=== PATIENT | male | born 1955 | race Caucasian/White ===

== ENCOUNTER 2017-06-02 11:57 | Emergency (ER) | payer OTHER ==
[2017-06-02 12:01] VITALS: BP 144/80
[2017-06-02] MEDS ORDERED: Tetracaine HCl/PF 0.5% 4 ML Bottle EYERT ONE (12:19)
[2017-06-02] MEDS ORDERED: Polyvinyl Alcohol 1.4% Ophth Soln 15 ML Bottle EYERT ONE (12:20)
[2017-06-02] MEDS ORDERED: Erythromycin Base 0.5% Ophth Oint 3.5 GM Tube ONE (12:41)
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
== END 2017-06-02 13:12 | disposition home or self-care (01) ==
LOC: LL.ED 11:57
DX: H10.31 Unspecified acute conjunctivitis, right eye (principal); Z88.0 Allergy status to penicillin; Z79.82 Long term (current) use of aspirin; Z79.899 Other long term (current) drug therapy
CPT/HCPCS: 99283; A9270

== ENCOUNTER 2020-01-30 12:13 | Emergency (ER) | payer OTHER ==
[2020-01-30] MEDS ORDERED: Lactated Ringers 1,000 ML IV ONE (13:02)
[2020-01-30] MEDS ORDERED: Sodium Chloride 0.9% 10 ML Syringe FLUSH PRN (13:02)
[2020-01-30 13:51] LABS: CHLORIDE,CL 102 mmol/L (98-107); SODIUM,NA 135 mmol/L (136-145)
[2020-01-30 14:15] LABS: PTT,PARTIAL THROMBOPLSTIN TIME 26.1 SEC (24.5-32.8)
[2020-01-30] MEDS ORDERED: Levofloxacin/Dextrose 5%-Water 500 MG in Premix Bag 1 BAG IV ONE (14:31)
--- NOTE | 2020-01-30 14:41 | EDM.PDOC ---
ED HPI GENERAL MEDICAL PROBLEM - General Chief Complaint: General Stated Complaint: fever, aches Time Seen by Provider: 01/30/20 12:35 Source of Information: Reports: Patient, Old Records ([facility] chart/EMR) History Limitations: Reports: No Limitations - History of Present Illness INITIAL COMMENTS - FREE TEXT/NARRATIVE: The patient was brought to the emergency room via private automobile by his for evaluation of a persistent fever of 101.7 at 7 AM this morning with similar fever yesterday evening. The patient has been having 6/10 nonspecific diffuse arthralgias and chills since yesterday evening with no known exposure to infection. He did take either ibuprofen or Tylenol earlier this morning at 7 AM with improved fever and arthralgias since that time. The patient did notice some increased dysuria and urinary frequency since about 14:00 hours yesterday with no gross hematuria, colic, etc.. The patient has been compliant with current social distancing, mass, etc. as per current CDC COVID-19 guidelines. No recent history of abdominal pain, heartburn, nausea, diarrhea, melena, gross hematochezia, or any food intolerance, including fatty foods, etc. with normal bowel movement yesterday evening. The patient also denies any recent cough, wheezing, dyspnea, etc.. The patient denies any chest pain/pressure, heart flutter, orthostasis, orthopnea, diaphoresis, paresthesias, recent decreased exercise tolerance, or any other anginal-type symptoms, although some nonspecific dizziness yesterday afternoon. Onset: Gradual Onset Date: 01/29/20 Onset Time: 14:00 Duration: Getting Worse Location: Reports: Generalized Quality: Reports: Ache, Same as Previous Episode Severity: Moderate Improves with: Reports: Medication Worsens with: Reports: None Context: Reports: Other (As above). Denies: Sick Contact, Trauma Associated Symptoms: Reports: Fever/Chills. 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: Reports: Other (see below) (As above) Generalized Pain Score (Numeric/FACES): 6 - Related Data Allergies Allergy/AdvReac Type Severity Reaction Status Date / Time Penicillins Allergy UNKNOWN Verified 01/30/20 12:15 Home Meds: Home Meds Metoprolol Succinate [Toprol XL] 25 mg PO 1800 11/18/14 [History] Pantoprazole Sodium 40 mg PO 1800 11/18/14 [History] Rosuvastatin [Crestor] 40 mg PO 1800 11/18/14 [History] amLODIPine Besylate [Amlodipine Besylate] 10 mg PO DAILY 11/18/14 [History] Aspirin [Elizabeth Chewable Aspirin] 162 mg PO DAILY 06/02/17 [History] Cholecalciferol (Vitamin D3) [Vitamin D3] 2 cap PO DAILY 06/02/17 [History] Fish Oil/Premier-3 Fatty Acids [Fish Oil 1,000 MG] 2 cap PO DAILY 06/02/17 [ History] Multivitamin [Multivitamins] 1 cap PO DAILY 06/02/17 [History] Niacin 500 mg PO BID 06/02/17 [History] Calcium Carbonate [Calcium] 500 mg PO DAILY 01/30/20 [History] Gabapentin [Neurontin] 300 mg PO BEDTIME 01/30/20 [History] Sertraline [Zoloft] 100 mg PO DAILY 01/30/20 [History] Tamsulosin HCl [Flomax] 0.4 mg PO BEDTIME 01/30/20 [History] levoFLOXacin [Levaquin] 500 mg PO DAILY@1200 #5 tablet 01/30/20 [Rx] Past Medical History HEENT History: Reports: Hard of Hearing, Other (See Below). Denies: Impaired Vision Other HEENT History: Bilateral presbycusis with current hearing aid therapy. Cardiovascular History: Reports: Arrhythmia, CAD, High Cholesterol, Hypertension , AK, PTCA, Stents, Syncope, Other (See Below) Other Cardiovascular History: AK in about November 2009 with PTCA/stent as below. Previous nonspecific possible vasovagal syncopal episode with limited evaluation in this facility on 07/22/79. Incomplete/complete right bundle branch block. Respiratory History: Reports: Intubation, Previous, Pneumothorax, Sleep Apnea, Other (See Below). Denies: Intubation, Difficult, PE Other Respiratory History: History of right lower lobe 9 mm pulmonary nodule at the CVA stable by serial CT scans. History of trauma secondary to being bucked off a horse on 02/13/09 with right-sided pulmonary contusion, flail chest, and fourth, fifth, and sixth rib fractures by CT scan with additional 5% right sided pneumothorax. Only fifth rib fracture noted by chest x-ray with no evidence of right clavicular fracture either by CT scan or x-rays despite hospitalization records at that time. Patient is compliant with his CPAP and uses Neurontin for restless leg syndrome. Gastrointestinal History: Reports: GERD, PUD, Other (See Below) Other Gastrointestinal History: History of nonspecific LFTs elevation possibly secondary to fatty liver. Multiple benign hepatic cysts by CT scan. Borderline splenomegaly. Genitourinary History: Reports: BPH, Other (See Below). Denies: Acute Renal Failure, Chronic Renal Insuffiency Other Genitourinary History: Right-sided renal cysts. Musculoskeletal History: Reports: Arthritis, Back Pain, Chronic, Neck Pain, Chronic, Osteoarthritis Neurological History: Reports: Other (See Below) Other Neuro History: Restless leg syndrome as above Psychiatric History: Reports: Anxiety, Depression Endocrine/Metabolic History: Reports: Obesity/BMI 30+ - Infectious Disease History Infectious Disease History: Reports: Mononucleosis (Mononucleosis at age 15 with unknown type of complications requiring 6 days of hospitalization by his history.) - Past Surgical History Cardiovascular Surgical History: Reports: Coronary Artery Stent, Percutaneous Transluminal Angioplasty, Other (See Below) Other Cardiovascular Surgeries/Procedures: PTCA/stent in November 2009 Respiratory Surgical History: Reports: None. Denies: Thoracentesis GI Surgical History: Reports: Appendectomy, Hernia, Abdominal, Other (See Below) Other GI Surgeries/Procedures: Ventral abdominal/umbilical hernia repair on . - Past Imaging History Past Imaging History: Reports: Angiography (November 2009), CAT Scan (CT of the neck on 02/26/15 and 06/09/13. CT of the chest on 03/18/19. CT of the abdomen and pelvis with contrast with additional CTA of the chest on 12/11/18. CT of the head on 04/14/16 and 06/09/13. CT of the neck, chest, lumbar spine, and thoracic spine on 02/13/09 secondary to horse trauma as above.), MRI (Right hip on . Right knee on 08/08/10.), Stress Testing (Cardiolite stress test on 01/15/19 with ejection fraction of 76% with previous Cardiolite stress test on 12/09/09.) , Ultrasound (Ultrasound of the scrotum bilaterally on 11/07/17. Right leg ultrasound on 01/02/11.), Venous Doppler (Left leg venous Doppler study on . Right leg venous Doppler study on 12/21/10 and 08/07/10.) Social & Family History - Tobacco Use Smoking Status *Q: Never Smoker Tobacco Use Within Last Twelve Months: No Used Tobacco, but Quit: No Smoking Cessation Information Provided To Patient: No Second Hand Smoke Exposure: No Second Hand Smoke Education Provided: No Second Hand Smoke Education Comment: Although his did smoke previously. - Living Situation & Occupation Living situation: Reports: with Family (, daughter, and granddaughter.) Occupation: Employed ([employer]. 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 ED EXAM, GENERAL - Physical Exam Exam: See Below Exam Limited By: No Limitations General Appearance: Alert, WD/WN, No Apparent Distress Eye Exam: Bilateral Eye: EOMI, Normal Inspection (No nystagmus), PERRL Ears: Normal External Exam, Normal Canal, Normal TMs, Hearing Loss (Moderate bilateral presbycusis with the patient not having his hearing aids today) Nose: Normal Inspection, Normal Mucosa, No Blood Throat/Mouth: Normal Inspection, Normal Lips, Normal Teeth, Normal Gums, Normal Oropharynx, Normal Voice, No Airway Compromise. No: Dysphagia, Perioral Cyanosis Head: Atraumatic, Normocephalic. No: Facial Swelling, Facial Tenderness, Sinus Tenderness Neck: Normal Inspection, Supple, Non-Tender, Full Range of Motion. No: Lymphadenopathy (L), Lymphadenopathy (R), Thyromegaly Respiratory/Chest: No Respiratory Distress, Lungs Clear, Normal Breath Sounds, No Accessory Muscle Use, Chest Non-Tender. No: Pleural Rub, Retractions Cardiovascular: Normal Peripheral Pulses, Regular Rate, Rhythm, No Edema, No Gallop, No JVD, No Murmur, No Rub. No: Gallop/S3, Gallop/S4, Friction Rub Peripheral Pulses: 2+: Radial (L), Radial (R) GI/Abdominal: Normal Bowel Sounds, Soft, Non-Tender, No Organomegaly, No Distention, No Abnormal Bruit, No Mass, Other (Obese). No: Guarding (Male) Exam: Deferred Rectal (Males) Exam: Deferred Back Exam: Normal Inspection, Full Range of Motion. No: CVA Tenderness (L), CVA Tenderness (R), Muscle Spasm Extremities: Normal Inspection, Normal Range of Motion, Non-Tender, No Pedal Edema, Normal Capillary Refill. No: Alonso's Sign Neurological: Alert, Oriented, CN II-XII Intact, Normal Cognition, Normal Gait, No Motor/Sensory Deficits Skin Exam: Warm, Dry, Intact, Normal Color, No Rash. No: Diaphoretic, Ecchymosis, Petechiae, Wound/Incision Lymphatic: No Adenopathy Course - Vital Signs Last Recorded V/S: Last Vital Signs Temp 37.2 C 01/30/20 12:15 Pulse 81 01/30/20 15:45 Resp 22 H 01/30/20 15:45 BP 156/63 H 01/30/20 15:45 Pulse Ox 92 L 01/30/20 15:45 Vital Signs - 24 hr 01/30/20 01/30/20 01/30/20 12:15 13:15 13:45 Temperature [ 37.2 C Oral] Pulse, 77 82 83 Peripheral [ Pulse Oximetry] Respiratory 22 H 23 H 23 H Rate Blood Pressure 136/57 L 134/59 L 140/62 [Left Upper Arm ] O2 Sat by Pulse 94 L 96 99 Oximetry 01/30/20 01/30/20 01/30/20 14:15 14:44 15:15 Temperature [ Oral] Pulse, 82 81 82 Peripheral [ Pulse Oximetry] Respiratory 21 H 21 H 23 H Rate Blood Pressure 139/73 133/63 145/64 H [Left Upper Arm ] O2 Sat by Pulse 100 100 98 Oximetry 01/30/20 15:45 Temperature [ Oral] Pulse, 81 Peripheral [ Pulse Oximetry] Respiratory 22 H Rate Blood Pressure 156/63 H [Left Upper Arm ] O2 Sat by Pulse 92 L Oximetry - Orders/Labs/Meds Orders: Active Orders 24 hr Category Date Time Status Cardiac Monitoring [RC] . DIRECTED Care 01/30/20 12:15 Active Peripheral IV Care [RC] . DIRECTED Care 01/30/20 13:03 Active Chest 1V Frontal [CR] Stat Exams 01/30/20 13:13 Taken CORONAVIRUS, COVID19 IGG AB, S [REF] Urgent Lab 01/30/20 14:22 Ordered CULTURE BLOOD [BC] Stat Lab 01/30/20 13:25 Received CULTURE BLOOD [] Stat Lab 01/30/20 13:55 Received CULTURE STREP A CONFIRMATION [] Stat Lab 01/30/20 13:04 Results CULTURE URINE [] Stat Lab 01/30/20 13:20 Received STREP SCRN A RAPID W CULT CONF [] Stat Lab 01/30/20 13:04 Results Blood Culture x2 Reflex Set [OM.PC] Urgent Oth 01/30/20 13:02 Ordered Obtain Past Medical Record [OM.PC] Urgent Oth 01/30/20 13:02 Active Peripheral IV Insertion Adult [OM.PC] Stat Oth 01/30/20 13:02 Ordered Resuscitation Status Stat Resus Stat 01/30/20 13:02 Ordered Labs: Laboratory Tests 01/30/20 01/30/20 01/30/20 Range/Units 13:04 13:15 13:25 WBC 14.6 H (4.0-10.2) K/uL RBC 4.41 (4.33-5.41) M/uL Hgb 13.3 (13.1-16.8) g/dL Hct 39.8 (39.0-49.0) % MCV 90.2 (84.0-98.0) fL MCH 30.2 (28.2-33.3) pg MCHC 33.4 (31.7-36.0) g/dL RDW 12.2 (11.2-14.1) % Plt Count 174 (150-350) K/uL Neut % (Auto) 74.1 (45.0-80.0) % Lymph % (Auto) 14.7 (10.0-50.0) % Bremer % (Auto) 10.9 (2.0-14.0) % Eos % (Auto) 0.2 (0.0-5.0) % Baso % (Auto) 0.1 (0.0-2.0) % Neut # (Auto) 10.80 H (1.40-7.00) K/uL Lymph # (Auto) 2.15 (0.50-3.50) K/uL Bremer # (Auto) 1.59 H (0.00-1.00) K/uL Eos # (Auto) 0.03 (0.00-0.50) K/uL Baso # (Auto) 0.02 (0.00-0.20) K/uL PT (9.5-12.0) SEC INR APTT (24.5-32.8) SEC D-Dimer, Quantitative 234 (0-400) ng/mL Sodium (136-145) mmol/L Potassium (3.5-5.1) mmol/L Chloride (98-107) mmol/L Carbon Dioxide (21.0-32.0) mmol/L BUN (7-18) mg/dL Creatinine (0.51-1.17) mg/dL Est Cr Clr Drug Dosing mL/min Estimated GFR (MDRD) mL/min Glucose (74-106) mg/dL Lactic Acid (0.4-2.0) mmol/L Uric Acid (2.6-7.2) mg/dL Calcium (8.5-10.1) mg/dL Magnesium (1.8-2.4) mg/dL Total Bilirubin (0.2-1.0) mg/dL AST (15-37) U/L ALT (12-78) U/L Alkaline Phosphatase (46-116) IU/L Total Protein (6.4-8.2) g/dL Albumin (3.4-5.0) g/dL Specimen Type Urinvoid Urine Color Yellow Urine Appearance Cloudy Urine pH 5.5 (5.0-9.0) Ur Specific Hilbert 1.025 (1.005-1.030) Urine Protein Negative (NEGATIVE) mg/dL Urine Glucose (UA) Negative (NEGATIVE) mg/dL Urine Ketones Negative (NEGATIVE) mg/dL Urine Occult Blood Trace-lysed H (NEGATIVE) Urine Nitrite Positive H (NEGATIVE) Urine Bilirubin Negative (NEGATIVE) Urine Urobilinogen 0.2 (0.2-1.0) E.U./dL Ur Leukocyte Esterase Moderate H (NEGATIVE) Urine RBC 0-5 /HPF Urine WBC >100 H /HPF Ur Epithelial Cells Rare /LPF Urine Bacteria Many H (NONE TO FEW) /HPF Monoscreen (NEGATIVE) 01/30/20 01/30/20 01/30/20 Range/Units 13:25 13:25 13:25 WBC (4.0-10.2) K/uL RBC (4.33-5.41) M/uL Hgb (13.1-16.8) g/dL Hct (39.0-49.0) % MCV (84.0-98.0) fL MCH (28.2-33.3) pg MCHC (31.7-36.0) g/dL RDW (11.2-14.1) % Plt Count (150-350) K/uL Neut % (Auto) (45.0-80.0) % Lymph % (Auto) (10.0-50.0) % Bremer % (Auto) (2.0-14.0) % Eos % (Auto) (0.0-5.0) % Baso % (Auto) (0.0-2.0) % Neut # (Auto) (1.40-7.00) K/uL Lymph # (Auto) (0.50-3.50) K/uL Bremer # (Auto) (0.00-1.00) K/uL Eos # (Auto) (0.00-0.50) K/uL Baso # (Auto) (0.00-0.20) K/uL PT 10.0 (9.5-12.0) SEC INR 1.0 APTT 26.1 (24.5-32.8) SEC D-Dimer, Quantitative (0-400) ng/mL Sodium 135 L (136-145) mmol/L Potassium 3.6 (3.5-5.1) mmol/L Chloride 102 (98-107) mmol/L Carbon Dioxide 22.9 (21.0-32.0) mmol/L BUN 18 (7-18) mg/dL Creatinine 0.75 (0.51-1.17) mg/dL Est Cr Clr Drug Dosing 103.19 mL/min Estimated GFR (MDRD) > 60 mL/min Glucose 180 H (74-106) mg/dL Lactic Acid 1.3 (0.4-2.0) mmol/L Uric Acid 4.4 (2.6-7.2) mg/dL Calcium 8.6 (8.5-10.1) mg/dL Magnesium 2.2 (1.8-2.4) mg/dL Total Bilirubin 0.5 (0.2-1.0) mg/dL AST 25 (15-37) U/L ALT 50 (12-78) U/L Alkaline Phosphatase 103 (46-116) IU/L Total Protein 7.4 (6.4-8.2) g/dL Albumin 3.8 (3.4-5.0) g/dL Specimen Type Urine Color Urine Appearance Urine pH (5.0-9.0) Ur Specific Hilbert (1.005-1.030) Urine Protein (NEGATIVE) mg/dL Urine Glucose (UA) (NEGATIVE) mg/dL Urine Ketones (NEGATIVE) mg/dL Urine Occult Blood (NEGATIVE) Urine Nitrite (NEGATIVE) Urine Bilirubin (NEGATIVE) Urine Urobilinogen (0.2-1.0) E.U./dL Ur Leukocyte Esterase (NEGATIVE) Urine RBC /HPF Urine WBC /HPF Ur Epithelial Cells /LPF Urine Bacteria (NONE TO FEW) /HPF Monoscreen (NEGATIVE) 01/30/20 Range/Units 13:25 WBC (4.0-10.2) K/uL RBC (4.33-5.41) M/uL Hgb (13.1-16.8) g/dL Hct (39.0-49.0) % MCV (84.0-98.0) fL MCH (28.2-33.3) pg MCHC (31.7-36.0) g/dL RDW (11.2-14.1) % Plt Count (150-350) K/uL Neut % (Auto) (45.0-80.0) % Lymph % (Auto) (10.0-50.0) % Bremer % (Auto) (2.0-14.0) % Eos % (Auto) (0.0-5.0) % Baso % (Auto) (0.0-2.0) % Neut # (Auto) (1.40-7.00) K/uL Lymph # (Auto) (0.50-3.50) K/uL Bremer # (Auto) (0.00-1.00) K/uL Eos # (Auto) (0.00-0.50) K/uL Baso # (Auto) (0.00-0.20) K/uL PT (9.5-12.0) SEC INR APTT (24.5-32.8) SEC D-Dimer, Quantitative (0-400) ng/mL Sodium (136-145) mmol/L Potassium (3.5-5.1) mmol/L Chloride (98-107) mmol/L Carbon Dioxide (21.0-32.0) mmol/L BUN (7-18) mg/dL Creatinine (0.51-1.17) mg/dL Est Cr Clr Drug Dosing mL/min Estimated GFR (MDRD) mL/min Glucose (74-106) mg/dL Lactic Acid (0.4-2.0) mmol/L Uric Acid (2.6-7.2) mg/dL Calcium (8.5-10.1) mg/dL Magnesium (1.8-2.4) mg/dL Total Bilirubin (0.2-1.0) mg/dL AST (15-37) U/L ALT (12-78) U/L Alkaline Phosphatase (46-116) IU/L Total Protein (6.4-8.2) g/dL Albumin (3.4-5.0) g/dL Specimen Type Urine Color Urine Appearance Urine pH (5.0-9.0) Ur Specific Hilbert (1.005-1.030) Urine Protein (NEGATIVE) mg/dL Urine Glucose (UA) (NEGATIVE) mg/dL Urine Ketones (NEGATIVE) mg/dL Urine Occult Blood (NEGATIVE) Urine Nitrite (NEGATIVE) Urine Bilirubin (NEGATIVE) Urine Urobilinogen (0.2-1.0) E.U./dL Ur Leukocyte Esterase (NEGATIVE) Urine RBC /HPF Urine WBC /HPF Ur Epithelial Cells /LPF Urine Bacteria (NONE TO FEW) /HPF Monoscreen Negative (NEGATIVE) Blood cultures 2 were collected Urine specimen set up for culture and sensitivity COVID-19 specimen collected Microbiology 01/30/20 13:04 Group A Streptococcus Rapid Screen - Final Throat NEGATIVE STREP A SCREEN REFERENCE RANGE: NEGATIVE Laboratory Tests 01/30/20 01/30/20 01/30/20 Range/Units 13:04 13:15 13:25 WBC 14.6 H (4.0-10.2) K/uL RBC 4.41 (4.33-5.41) M/uL Hgb 13.3 (13.1-16.8) g/dL Hct 39.8 (39.0-49.0) % MCV 90.2 (84.0-98.0) fL MCH 30.2 (28.2-33.3) pg MCHC 33.4 (31.7-36.0) g/dL RDW 12.2 (11.2-14.1) % Plt Count 174 (150-350) K/uL Neut % (Auto) 74.1 (45.0-80.0) % Lymph % (Auto) 14.7 (10.0-50.0) % Bremer % (Auto) 10.9 (2.0-14.0) % Eos % (Auto) 0.2 (0.0-5.0) % Baso % (Auto) 0.1 (0.0-2.0) % Neut # (Auto) 10.80 H (1.40-7.00) K/uL Lymph # (Auto) 2.15 (0.50-3.50) K/uL Bremer # (Auto) 1.59 H (0.00-1.00) K/uL Eos # (Auto) 0.03 (0.00-0.50) K/uL Baso # (Auto) 0.02 (0.00-0.20) K/uL PT (9.5-12.0) SEC INR APTT (24.5-32.8) SEC D-Dimer, Quantitative 234 (0-400) ng/mL Sodium (136-145) mmol/L Potassium (3.5-5.1) mmol/L Chloride (98-107) mmol/L Carbon Dioxide (21.0-32.0) mmol/L BUN (7-18) mg/dL Creatinine (0.51-1.17) mg/dL Est Cr Clr Drug Dosing mL/min Estimated GFR (MDRD) mL/min Glucose (74-106) mg/dL Lactic Acid (0.4-2.0) mmol/L Uric Acid (2.6-7.2) mg/dL Calcium (8.5-10.1) mg/dL Magnesium (1.8-2.4) mg/dL Total Bilirubin (0.2-1.0) mg/dL AST (15-37) U/L ALT (12-78) U/L Alkaline Phosphatase (46-116) IU/L Total Protein (6.4-8.2) g/dL Albumin (3.4-5.0) g/dL Specimen Type Urinvoid Urine Color Yellow Urine Appearance Cloudy Urine pH 5.5 (5.0-9.0) Ur Specific Hilbert 1.025 (1.005-1.030) Urine Protein Negative (NEGATIVE) mg/dL Urine Glucose (UA) Negative (NEGATIVE) mg/dL Urine Ketones Negative (NEGATIVE) mg/dL Urine Occult Blood Trace-lysed H (NEGATIVE) Urine Nitrite Positive H (NEGATIVE) Urine Bilirubin Negative (NEGATIVE) Urine Urobilinogen 0.2 (0.2-1.0) E.U./dL Ur Leukocyte Esterase Moderate H (NEGATIVE) Urine RBC 0-5 /HPF Urine WBC >100 H /HPF Ur Epithelial Cells Rare /LPF Urine Bacteria Many H (NONE TO FEW) /HPF Monoscreen (NEGATIVE) 01/30/20 01/30/20 01/30/20 Range/Units 13:25 13:25 13:25 WBC (4.0-10.2) K/uL RBC (4.33-5.41) M/uL Hgb (13.1-16.8) g/dL Hct (39.0-49.0) % MCV (84.0-98.0) fL MCH (28.2-33.3) pg MCHC (31.7-36.0) g/dL RDW (11.2-14.1) % Plt Count (150-350) K/uL Neut % (Auto) (45.0-80.0) % Lymph % (Auto) (10.0-50.0) % Bremer % (Auto) (2.0-14.0) % Eos % (Auto) (0.0-5.0) % Baso % (Auto) (0.0-2.0) % Neut # (Auto) (1.40-7.00) K/uL Lymph # (Auto) (0.50-3.50) K/uL Bremer # (Auto) (0.00-1.00) K/uL Eos # (Auto) (0.00-0.50) K/uL Baso # (Auto) (0.00-0.20) K/uL PT 10.0 (9.5-12.0) SEC INR 1.0 APTT 26.1 (24.5-32.8) SEC D-Dimer, Quantitative (0-400) ng/mL Sodium 135 L (136-145) mmol/L Potassium 3.6 (3.5-5.1) mmol/L Chloride 102 (98-107) mmol/L Carbon Dioxide 22.9 (21.0-32.0) mmol/L BUN 18 (7-18) mg/dL Creatinine 0.75 (0.51-1.17) mg/dL Est Cr Clr Drug Dosing 103.19 mL/min Estimated GFR (MDRD) > 60 mL/min Glucose 180 H (74-106) mg/dL Lactic Acid 1.3 (0.4-2.0) mmol/L Uric Acid 4.4 (2.6-7.2) mg/dL Calcium 8.6 (8.5-10.1) mg/dL Magnesium 2.2 (1.8-2.4) mg/dL Total Bilirubin 0.5 (0.2-1.0) mg/dL AST 25 (15-37) U/L ALT 50 (12-78) U/L Alkaline Phosphatase 103 (46-116) IU/L Total Protein 7.4 (6.4-8.2) g/dL Albumin 3.8 (3.4-5.0) g/dL Specimen Type Urine Color Urine Appearance Urine pH (5.0-9.0) Ur Specific Hilbert (1.005-1.030) Urine Protein (NEGATIVE) mg/dL Urine Glucose (UA) (NEGATIVE) mg/dL Urine Ketones (NEGATIVE) mg/dL Urine Occult Blood (NEGATIVE) Urine Nitrite (NEGATIVE) Urine Bilirubin (NEGATIVE) Urine Urobilinogen (0.2-1.0) E.U./dL Ur Leukocyte Esterase (NEGATIVE) Urine RBC /HPF Urine WBC /HPF Ur Epithelial Cells /LPF Urine Bacteria (NONE TO FEW) /HPF Monoscreen (NEGATIVE) 01/30/20 Range/Units 13:25 WBC (4.0-10.2) K/uL RBC (4.33-5.41) M/uL Hgb (13.1-16.8) g/dL Hct (39.0-49.0) % MCV (84.0-98.0) fL MCH (28.2-33.3) pg MCHC (31.7-36.0) g/dL RDW (11.2-14.1) % Plt Count (150-350) K/uL Neut % (Auto) (45.0-80.0) % Lymph % (Auto) (10.0-50.0) % Bremer % (Auto) (2.0-14.0) % Eos % (Auto) (0.0-5.0) % Baso % (Auto) (0.0-2.0) % Neut # (Auto) (1.40-7.00) K/uL Lymph # (Auto) (0.50-3.50) K/uL Bremer # (Auto) (0.00-1.00) K/uL Eos # (Auto) (0.00-0.50) K/uL Baso # (Auto) (0.00-0.20) K/uL PT (9.5-12.0) SEC INR APTT (24.5-32.8) SEC D-Dimer, Quantitative (0-400) ng/mL Sodium (136-145) mmol/L Potassium (3.5-5.1) mmol/L Chloride (98-107) mmol/L Carbon Dioxide (21.0-32.0) mmol/L BUN (7-18) mg/dL Creatinine (0.51-1.17) mg/dL Est Cr Clr Drug Dosing mL/min Estimated GFR (MDRD) mL/min Glucose (74-106) mg/dL Lactic Acid (0.4-2.0) mmol/L Uric Acid (2.6-7.2) mg/dL Calcium (8.5-10.1) mg/dL Magnesium (1.8-2.4) mg/dL Total Bilirubin (0.2-1.0) mg/dL AST (15-37) U/L ALT (12-78) U/L Alkaline Phosphatase (46-116) IU/L Total Protein (6.4-8.2) g/dL Albumin (3.4-5.0) g/dL Specimen Type Urine Color Urine Appearance Urine pH (5.0-9.0) Ur Specific Hilbert (1.005-1.030) Urine Protein (NEGATIVE) mg/dL Urine Glucose (UA) (NEGATIVE) mg/dL Urine Ketones (NEGATIVE) mg/dL Urine Occult Blood (NEGATIVE) Urine Nitrite (NEGATIVE) Urine Bilirubin (NEGATIVE) Urine Urobilinogen (0.2-1.0) E.U./dL Ur Leukocyte Esterase (NEGATIVE) Urine RBC /HPF Urine WBC /HPF Ur Epithelial Cells /LPF Urine Bacteria (NONE TO FEW) /HPF Monoscreen Negative (NEGATIVE) Meds: Medications Discontinued Medications Generic Name Dose Route Start Last Admin Trade Name Freq PRN Reason Stop Dose Admin Lactated Ringer's 1,000 mls @ 999 mls/hr 01/30/20 13:02 01/30/20 14:06 Ringers, Lactated IV 01/30/20 14:02 999 mls/hr .BOLUS ONE Administration Levofloxacin/Dextrose 500 mg/ 100 mls @ 100 mls/hr 01/30/20 14:31 01/30/20 14 :44 Premix IV 01/30/20 15:30 100 mls/hr ONETIME ONE Administration Sodium Chloride 10 ml 01/30/20 13:02 01/30/20 14:44 Saline Flush FLUSH 10 ml ASDIRECTED PRN Administration Keep Vein Open - Radiology Interpretation Free Text/Narrative:: project builder shows normal sinus rhythm in the 80s with no ectopy or arrhythmia Chest x-ray, portable, shows a moderately elevated right hemidiaphragm with a probable new 1-2 centimeter pulmonary nodule in the right perihilar versus right middle lobe region. Mild prominence of the proximal aortic arch with possible COPD changes but no significant cardiomegaly, CHF, pulmonary infiltrates, pneumothorax, etc. Departure - Departure Time of Disposition: 16:45 Disposition: Home, Self-Care 01 Condition: Good Clinical Impression: Hyponatremia, Pulmonary nodule, Peptic reflux disease, Mixed anxiety depressive disorder UTI (urinary tract infection) Qualifiers: Urinary tract infection type: acute cystitis Hematuria presence: with hematuria Qualified Code(s): N30.01 - Acute cystitis with hematuria Hypertension Qualifiers: Hypertension type: essential hypertension Qualified Code(s): I10 - Essential ( primary) hypertension Coronary artery disease Qualifiers: Coronary Disease-Associated Artery/Lesion type: [place] artery [place] vs. transplanted heart: [place] heart Associated angina: without angina Qualified Code(s): I25.10 - Atherosclerotic heart disease of [place] coronary artery without angina pectoris Hyperlipidemia Qualifiers: Hyperlipidemia type: unspecified Qualified Code(s): E78.5 - Hyperlipidemia, unspecified - Discharge Information *PRESCRIPTION DRUG MONITORING PROGRAM REVIEWED*: Not Applicable *COPY OF PRESCRIPTION DRUG MONITORING REPORT IN PATIENT AMIRAH: Not Applicable Prescriptions: levoFLOXacin [Levaquin] 500 mg PO DAILY@1200 #5 tablet Instructions: Urinary Tract Infection, Adult, [id number], Levofloxacin tablets, Coronavirus Information 11/30/19, Steps to Help Prevent the Spread of COVID-19 if You Are Sick - [facility] Referrals: Shari Blackburn NP [Primary Care Provider] - Forms: ED Department Discharge Additional Instructions: 1. Followup with your regular provider on 01/31 for reevaluation and recommended repeat CBC, comprehensive metabolic panel and glycosylated hemoglobin as directed. Bring these discharge instructions with you to that visit. 2. Tylenol 650 mg by mouth every 4 hours and/or OTC ibuprofen 2-3 tabs by mouth every 6 hours with food as directed./needed. You may stagger these medications for 48-72 hours only, which essentially means that you are receiving a pain medication about every 2 hours. 3. Urine tests should be repeated per instructions from your regular provider depending on follow-up blood work results, etc. as above with repeat urine tests , including recommended urine culture and sensitivity test. Today's urine culture is pending with results in about 2-3 days. Your regular provider will have these results available to her with additional antibiotics and/or change of your therapy at that time depending on those test results. 4. Start your Levaquin tomorrow at noon secondary to medications given in the emergency room 5. Penicillin should be removed from your allergy list since this was a reaction to your antibiotics at time of your previous mononucleosis. 6. Secondary to possible new and/or larger pulmonary nodule based on today's chest x-ray recommend that your regular provider schedule a CT scan of the chest with IV contrast CHERYL with this to be discussed with your regular provider at follow-up visit on 01/31 as above 7. Encourage oral fluids, including daily cranberry use, etc.as directed. 8. Maintain recommended quarantine until you have been notified of today's COVID -19 test results as discussed with return to previous social distancing, use of masks, etc., thereafter as per current recommended CDC guidelines 9. Immediately after this visit verify that your cellular telephone's voicemail has been activated and is empty. Also verify that your home telephone 's answering machine is operating properly and has space to receive messages. Note that it is sometimes necessary for us to be able to contact you at a later date to discuss your medical care. 10. Please remember that we are ALWAYS here for you and want to answer any questions you may have. Feel free to call the hospital any time and we call you back CHERYL. Sepsis Event Note - Evaluation Sepsis Screening Result: Possible Sepsis Risk - Focused Exam Vital Signs: Vital Signs Temp Pulse Resp BP Pulse Ox 01/30/20 15:45 81 22 H 156/63 H 92 L 01/30/20 15:15 82 23 H 145/64 H 98 01/30/20 14:44 81 21 H 133/63 100 01/30/20 14:15 82 21 H 139/73 100 01/30/20 13:45 83 23 H 140/62 99 01/30/20 13:15 82 23 H 134/59 L 96 01/30/20 12:15 37.2 C 77 22 H 136/57 L 94 L Date Exam was Performed: 01/30/20 Time Exam was Performed: 20:43 - Problem List & Annotations (1) UTI (urinary tract infection) SNOMED Code(s): 65350512 Code(s): N39.0 - URINARY TRACT INFECTION, SITE NOT SPECIFIED Status: Acute Priority: High Onset Date: 01/29/20 Annotation/Comment:: Various therapeutic options were discussed with the patient in light of his recent fever and current mild to moderate leukocytosis. No hospitalization at this time per his request with IV Levaquin given in the emergency room. Urine has been set up for culture and sensitivity. Emergency room supply of Levaquin oral therapy to be initiated tomorrow with close follow-up by regular provider as per discharge instructions. Blood cultures 2 were also collected. No direct indication of current COVID-19 infection, however specimen was collected with results pending and quarantine, isolation, etc. precautions given. Qualifiers: Urinary tract infection type: acute cystitis Hematuria presence: with hematuria Qualified Code(s): N30.01 - Acute cystitis with hematuria (2) Coronary artery disease SNOMED Code(s): 72534504 Code(s): I25.10 - ATHSCL HEART DISEASE OF [place] CORONARY ARTERY W/O ANG PCTRS Status: Chronic Priority: Medium Annotation/Comment:: Stable by history with no recent chest pain or anginal complaints Qualifiers: Coronary Disease-Associated Artery/Lesion type: [place] artery [place] vs. transplanted heart: [place] heart Associated angina: without angina Qualified Code(s): I25.10 - Atherosclerotic heart disease of [place] coronary artery without angina pectoris (3) Hyperlipidemia SNOMED Code(s): 63121118 Code(s): E78.5 - HYPERLIPIDEMIA, UNSPECIFIED Status: Chronic Priority: Medium Annotation/Comment:: Currently under medical therapy. Weight loss in moderation is advisable. Continue to observe closely by regular provider. Qualifiers: Hyperlipidemia type: unspecified Qualified Code(s): E78.5 - Hyperlipidemia , unspecified (4) Hypertension SNOMED Code(s): 37707661 Code(s): I10 - ESSENTIAL (PRIMARY) HYPERTENSION Status: Chronic Priority : Medium Annotation/Comment:: Stable by history and in the emergency room. Qualifiers: Hypertension type: essential hypertension Qualified Code(s): I10 - Essential (primary) hypertension (5) Pulmonary nodule SNOMED Code(s): 155684347 Code(s): R91.1 - SOLITARY PULMONARY NODULE Status: Acute Priority: High Onset Date: 01/30/20 Annotation/Comment:: Previous history of stable small right lower lobe pulmonary nodule at the CVA with newly diagnosed probable right middle lobe versus right perihilar pulmonary nodule requiring close follow -up as per discharge instructions. Patient normally gets yearly CT scans of his chest with next evaluation due in March. Close follow-up by regular provider with further consultation depending on CT scan results. (6) Hyponatremia SNOMED Code(s): 22853854 Code(s): E87.1 - HYPO-OSMOLALITY AND HYPONATREMIA Status: Acute Priority : Medium Onset Date: 01/30/20 Annotation/Comment:: Mild hyponatremia and random hyperglycemia today with no known previous history of diabetes. No clinical evidence of CHF. Close follow-up by regular provider as per discharge instructions. (7) Mixed anxiety depressive disorder SNOMED Code(s): 498150038 Code(s): F41.8 - OTHER SPECIFIED ANXIETY DISORDERS Status: Chronic Priority: Medium Annotation/Comment:: Stable by history and in the emergency room (8) Peptic reflux disease SNOMED Code(s): 017572760 Code(s): K21.9 - GASTRO-ESOPHAGEAL REFLUX DISEASE WITHOUT ESOPHAGITIS Status: Chronic Priority: Medium Annotation/Comment:: Stable by history and in the emergency room. - Problem List Review Problem List Initiated/Reviewed/Updated: Yes - My Orders Last 24 Hours: My Active Orders 01/30/20 12:15 Cardiac Monitoring [RC] . DIRECTED 01/30/20 13:02 Blood Culture x2 Reflex Set [OM.PC] Urgent Obtain Past Medical Record [OM.PC] Urgent Peripheral IV Insertion Adult [OM.PC] Stat Resuscitation Status Stat 01/30/20 13:03 Peripheral IV Care [RC] . DIRECTED 01/30/20 13:04 CULTURE STREP A CONFIRMATION [RM] Stat STREP SCRN A RAPID W CULT CONF [RM] Stat 01/30/20 13:13 Chest 1V Frontal [CR] Stat 01/30/20 13:20 CULTURE URINE [RM] Stat 01/30/20 13:25 CULTURE BLOOD [BC] Stat 01/30/20 13:55 CULTURE BLOOD [BC] Stat 01/30/20 14:22 CORONAVIRUS, COVID19 IGG AB, S [REF] Urgent - Assessment/Plan Last 24 Hours: My Active Orders 01/30/20 12:15 Cardiac Monitoring [RC] . DIRECTED 01/30/20 13:02 Blood Culture x2 Reflex Set [OM.PC] Urgent Obtain Past Medical Record [OM.PC] Urgent Peripheral IV Insertion Adult [OM.PC] Stat Resuscitation Status Stat 01/30/20 13:03 Peripheral IV Care [RC] . DIRECTED 01/30/20 13:04 CULTURE STREP A CONFIRMATION [RM] Stat STREP SCRN A RAPID W CULT CONF [RM] Stat 01/30/20 13:13 Chest 1V Frontal [CR] Stat 01/30/20 13:20 CULTURE URINE [RM] Stat 01/30/20 13:25 CULTURE BLOOD [BC] Stat 01/30/20 13:55 CULTURE BLOOD [BC] Stat 01/30/20 14:22 CORONAVIRUS, COVID19 IGG AB, S [REF] Urgent Assessment:: As above Plan: As above. Extensive precautions were given to the patient, who is in agreement with the treatment plan. See Patient Instructions for further treatment and plan.
[2020-01-30 19:30] VITALS: BP 156/63; PULSE 81
== END 2020-01-30 16:45 | disposition home or self-care (01) ==
LOC: LL.ED 12:13
DX: N30.01 Acute cystitis with hematuria (principal); E87.1 Hypo-osmolality and hyponatremia; E78.5 Hyperlipidemia, unspecified; I25.10 Atherosclerotic heart disease of native coronary artery without angina pectoris; R91.1 Solitary pulmonary nodule; K27.9 Peptic ulcer, site unspecified, unspecified as acute or chronic, without hemorrhage or perforation; K21.9 Gastro-esophageal reflux disease without esophagitis; M19.90 Unspecified osteoarthritis, unspecified site; F41.9 Anxiety disorder, unspecified; F32.9 Major depressive disorder, single episode, unspecified; E66.9 Obesity, unspecified; Z68.31 Body mass index [BMI] 31.0-31.9, adult; F41.8 Other specified anxiety disorders; E78.00 Pure hypercholesterolemia, unspecified; I25.2 Old myocardial infarction; I10 Essential (primary) hypertension; Z79.899 Other long term (current) drug therapy; Z79.82 Long term (current) use of aspirin; Z95.5 Presence of coronary angioplasty implant and graft
CPT/HCPCS: 36415; 71045; 80053; 81001; 83605; 83735; 84550; 85025; 85379; 85610; 85730; 86308; 87040; 87081; 87086; 87088; 87186; 87430; 96361; 96365; 99283-25; J1956; J7120; U0002

== ENCOUNTER 2021-07-01 19:12 | Emergency (ER) | payer OTHER, MEDICARE ==
[2021-07-01 19:21] VITALS: BP 163/72; PULSE 99
--- NOTE | 2021-07-01 19:40 | EDM.PDOC ---
ED HPI GENERAL MEDICAL PROBLEM - General Chief Complaint: Upper Extremity Injury/Pain Stated Complaint: LEFT ARM CELLULITIS Time Seen by Provider: 07/01/21 19:15 Source of Information: Reports: Patient History Limitations: Reports: No Limitations - History of Present Illness INITIAL COMMENTS - FREE TEXT/NARRATIVE: He presents to the emergency department for evaluation of a bump on his left forearm. Localized to the dorsal aspect of the proximal forearm. Started 3 days ago and is gradually increasing in size. It is very tender with diffuse aching pain surrounding it. Today noted some swelling in the distal forearm. He has been soaking it in warm water twice a day and does get drainage from it when he does that. No injury that he is aware of. No fever or chills. Is a history of coronary artery disease, hypertension and hyperlipidemia which he believes are all in control. Left Lower Arm Pain Score (Numeric/FACES): 6 - Related Data Allergies Allergy/AdvReac Type Severity Reaction Status Date / Time Penicillins Allergy UNKNOWN Verified 07/01/21 19:13 Home Meds: Home Meds Metoprolol Succinate [Toprol XL] 25 mg PO 1800 11/18/14 [History] Pantoprazole Sodium 40 mg PO 1800 11/18/14 [History] Rosuvastatin [Crestor] 40 mg PO 1800 11/18/14 [History] amLODIPine Besylate [Amlodipine Besylate] 10 mg PO DAILY 11/18/14 [History] Aspirin [Elizabeth Chewable Aspirin] 162 mg PO DAILY 06/02/17 [History] Cholecalciferol (Vitamin D3) [Vitamin D3] 2 cap PO DAILY 06/02/17 [History] Fish Oil/Lafe-3 Fatty Acids [Fish Oil 1,000 MG] 2 cap PO DAILY 06/02/17 [History] Multivitamin [Multivitamins] 1 cap PO DAILY 06/02/17 [History] Niacin 500 mg PO BID 06/02/17 [History] Calcium Carbonate [Calcium] 500 mg PO DAILY 01/30/20 [History] Gabapentin [Neurontin] 300 mg PO BEDTIME 01/30/20 [History] Sertraline [Zoloft] 100 mg PO DAILY 01/30/20 [History] Tamsulosin HCl [Flomax] 0.4 mg PO BEDTIME 01/30/20 [History] levoFLOXacin [Levaquin] 500 mg PO DAILY@1200 #5 tablet 01/30/20 [Rx] Past Medical History HEENT History: Reports: Hard of Hearing, Other (See Below). Denies: Impaired Vision Other HEENT History: Bilateral presbycusis with current hearing aid therapy. Cardiovascular History: Reports: Arrhythmia, CAD, High Cholesterol, Hypertension, SD, PTCA, Stents, Syncope, Other (See Below) Other Cardiovascular History: SD in about November 2009 with PTCA/stent as below. Previous nonspecific possible vasovagal syncopal episode with limited evaluation in this facility on 07/22/79. Incomplete/complete right bundle branch block. Respiratory History: Reports: Intubation, Previous, Pneumothorax, Sleep Apnea, Other (See Below). Denies: Intubation, Difficult, PE Other Respiratory History: History of right lower lobe 9 mm pulmonary nodule at the CVA stable by serial CT scans. History of trauma secondary to being bucked off a horse on 02/13/09 with right-sided pulmonary contusion, flail chest, and fourth, fifth, and sixth rib fractures by CT scan with additional 5% right sided pneumothorax. Only fifth rib fracture noted by chest x-ray with no evidence of right clavicular fracture either by CT scan or x-rays despite hospitalization records at that time. Patient is compliant with his CPAP and uses Neurontin for restless leg syndrome. Gastrointestinal History: Reports: GERD, PUD, Other (See Below) Other Gastrointestinal History: History of nonspecific LFTs elevation possibly secondary to fatty liver. Multiple benign hepatic cysts by CT scan. Borderline splenomegaly. Genitourinary History: Reports: BPH, Other (See Below). Denies: Acute Renal Failure, Chronic Renal Insuffiency Other Genitourinary History: Right-sided renal cysts. Musculoskeletal History: Reports: Arthritis, Back Pain, Chronic, Neck Pain, Chronic, Osteoarthritis Neurological History: Reports: Other (See Below) Other Neuro History: Restless leg syndrome as above Psychiatric History: Reports: Anxiety, Depression Endocrine/Metabolic History: Reports: Obesity/BMI 30+ - Infectious Disease History Infectious Disease History: Reports: Mononucleosis (Mononucleosis at age 15 with unknown type of complications requiring 6 days of hospitalization by his history.) - Past Surgical History Cardiovascular Surgical History: Reports: Coronary Artery Stent, Percutaneous Transluminal Angioplasty, Other (See Below) Other Cardiovascular Surgeries/Procedures: PTCA/stent in November 2009 Respiratory Surgical History: Reports: None. Denies: Thoracentesis GI Surgical History: Reports: Appendectomy, Hernia, Abdominal, Other (See Below) Other GI Surgeries/Procedures: Ventral abdominal/umbilical hernia repair on 11/18/14. - Past Imaging History Past Imaging History: Reports: Angiography (November 2009), CAT Scan (CT of the neck on 02/26/15 and 06/09/13. CT of the chest on 03/18/19. CT of the abdomen and pelvis with contrast with additional CTA of the chest on 12/11/18. CT of the head on 04/14/16 and 06/09/13. CT of the neck, chest, lumbar spine, and thoracic spine on 02/13/09 secondary to horse trauma as above.), MRI (Right hip on 01/01/19. Right knee on 08/08/10.), Stress Testing (Cardiolite stress test on 01/15/19 with ejection fraction of 76% with previous Cardiolite stress test on 12/09/09.), Ultrasound (Ultrasound of the scrotum bilaterally on 11/07/17. Right leg ultrasound on 01/02/11.), Venous Doppler (Left leg venous Doppler study on 04/15/20. 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 There is slight bleeding/drainage from the center of it. Mild surrounding swelling and redness encompassing approximately 5 cm. Mild tenderness in that area. Minimal swelling in the distal forearm with no redness. Exam Limited By: No Limitations General Appearance: Alert, WD/WN Head: Atraumatic, Normocephalic Respiratory/Chest: No Respiratory Distress, Normal Breath Sounds Cardiovascular: Regular Rate, Rhythm, No Murmur Course - Vital Signs Text/Narrative:: Apparent abscess in the proximal forearm with mild surrounding cellulitis. Since the abscess is draining decided not to I&D it tonight. He is given a gram of Rocephin IV in the emergency department. Orders written for 2 more days of IV Rocephin, but he should follow-up in clinic with his primary provider on Saturday and likely start oral antibiotics at that time. Last Recorded V/S: Last Vital Signs Temp 36.9 C 07/01/21 19:19 Pulse 99 07/01/21 19:19 Resp 16 07/01/21 19:19 BP 163/72 H 07/01/21 19:19 Pulse Ox 99 07/01/21 19:19 - Orders/Labs/Meds Orders: Active Orders 24 hr Category Date Time Status cefTRIAXone [Rocephin] 1 gm Med 07/01/21 19:29 Active Sodium Chloride 0.9% [Normal Saline] 100 ml IV ONETIME Medication Orders Ceftriaxone Sodium 1 gm/ (Sodium Chloride) 100 mls @ 200 mls/hr IV ONETIME ONE Stop: 07/01/21 19:58 Meds: Medications Generic Name Dose Route Start Last Admin Trade Name Freq PRN Reason Stop Dose Admin Ceftriaxone Sodium 1 gm/ 100 mls @ 200 mls/hr 07/01/21 19:29 Sodium Chloride IV 07/01/21 19:58 ONETIME ONE Departure - Departure Time of Disposition: 20:15 Disposition: Home, Self-Care 01 Condition: Good Clinical Impression: Cellulitis of forearm, left - Discharge Information *PRESCRIPTION DRUG MONITORING PROGRAM REVIEWED*: Not Applicable *COPY OF PRESCRIPTION DRUG MONITORING REPORT IN PATIENT AMIRAH: Not Applicable Instructions: Cellulitis, Adult Referrals: Shari Blackburn NP [Primary Care Provider] - Care Plan Goals: Rocephin 1 g IV daily for 3 days. First dose is given today. Return to the emergency department tomorrow afternoon for second dose. Follow-up with primary provider on Saturday to decide if a third dose is necessary or if he can switch to oral antibiotics at that time. Apply warm compresses over the lesion for 15 minutes 3-4 times daily. Tylenol and/or Advil as needed for pain. Follow-up with any worsening. Sepsis Event Note (ED) - Focused Exam Vital Signs: Vital Signs Temp Pulse Resp BP Pulse Ox 07/01/21 19:19 36.9 C 99 16 163/72 H 99 - Problem List & Annotations (1) Cellulitis of forearm, left SNOMED Code(s): 04098695 Code(s): L03.114 - CELLULITIS OF LEFT UPPER LIMB Status: Acute Current Visit: Yes - My Orders Last 24 Hours: My Active Orders 07/01/21 19:29 cefTRIAXone [Rocephin] 1 gm Sodium Chloride 0.9% [Normal Saline] 100 ml IV ONETIME - Assessment/Plan Last 24 Hours: My Active Orders 07/01/21 19:29 cefTRIAXone [Rocephin] 1 gm Sodium Chloride 0.9% [Normal Saline] 100 ml IV ONETIME Plan: Rocephin 1 g IV daily for 3 days. First dose is given today. Return to the emergency department tomorrow afternoon for second dose. Follow-up with primary provider on Saturday to decide if a third dose is necessary or if he can switch to oral antibiotics at that time. Apply warm compresses over the lesion for 15 minutes 3-4 times daily. Tylenol and/or Advil as needed for pain. Follow-up with any worsening.
[2021-07-01] MEDS: cefTRIAXone 1 GM in Sodium Chloride 0.9% 100 ML IV ONE (19:58)
== END 2021-07-01 20:35 | disposition home or self-care (01) ==
LOC: LL.ED 19:12
DX: L03.114 Cellulitis of left upper limb (principal); I25.10 Atherosclerotic heart disease of native coronary artery without angina pectoris; E78.00 Pure hypercholesterolemia, unspecified; I10 Essential (primary) hypertension; I25.2 Old myocardial infarction; K21.9 Gastro-esophageal reflux disease without esophagitis; N40.0 Benign prostatic hyperplasia without lower urinary tract symptoms; M19.90 Unspecified osteoarthritis, unspecified site; E66.9 Obesity, unspecified; Z68.32 Body mass index [BMI] 32.0-32.9, adult; Z88.0 Allergy status to penicillin; Z79.82 Long term (current) use of aspirin; Z79.899 Other long term (current) drug therapy
CPT/HCPCS: 96365; 99283; 99283-25; J0696

== ENCOUNTER 2023-01-13 15:36 | Emergency (ER) | payer MEDICARE ==
[2023-01-13] MEDS ORDERED: Sodium Chloride 0.9% 10 ML Syringe FLUSH PRN (15:45)
[2023-01-13] MEDS ORDERED: Sodium Chloride 0.9% 1,000 ML IV ONE ×2 (15:46→17:15)
[2023-01-13 16:17] VITALS: PULSE 88
[2023-01-13] MEDS ORDERED: Ondansetron 4 MG Tab.DIS PO ONE (16:22)
[2023-01-13 16:41] LABS: ANION GAP 11.6 meq/L (7-15); CHLORIDE,CL 102 mmol/L (98-107); SODIUM,NA 139 mmol/L (136-145)
[2023-01-13 16:47] LABS: CORONAVIRUS COVID-19 NAA NEGATIVE (NEGATIVE); RESPIRATORY SYNCYTIAL VIR NAA NEGATIVE (NEGATIVE)
[2023-01-13 16:49] LABS: ESTIMATED GFR 86 mL/min (>=60)
[2023-01-13 17:28] VITALS: BP 143/86
[2023-01-13] MEDS ORDERED: Iopamidol 612 MG/ML 100 ML Bottle IVPUSH ONE (17:29)
[2023-01-13] MEDS ORDERED: Take Home: Ondansetron 4 MG Tab.DIS, 5 Tab Pack PO ONE (19:19)
== END 2023-01-13 20:00 | disposition home or self-care (01) ==
LOC: LL.ED 15:36
DX: R53.83 Other fatigue (principal); R11.2 Nausea with vomiting, unspecified; M79.10 Myalgia, unspecified site; R73.9 Hyperglycemia, unspecified; I25.10 Atherosclerotic heart disease of native coronary artery without angina pectoris; E78.00 Pure hypercholesterolemia, unspecified; I10 Essential (primary) hypertension; I25.2 Old myocardial infarction; K21.9 Gastro-esophageal reflux disease without esophagitis; E66.9 Obesity, unspecified; Z68.30 Body mass index [BMI] 30.0-30.9, adult; Z88.0 Allergy status to penicillin; Z79.899 Other long term (current) drug therapy; Z79.82 Long term (current) use of aspirin; Z20.822 Contact with and (suspected) exposure to COVID-19
CPT/HCPCS: 0241U; 36415; 71046; 74178; 80053; 81003; 83036; 83880; 85025; 86308; 93005; 93010; 96360; 99284; 99285-25; A9270-GY; J7030; Q0162; Q9967

== ENCOUNTER 2023-04-21 15:12 | Emergency (ER) | payer MEDICARE ==
[2023-04-21 15:15] VITALS: BP 157/78; PULSE 78
[2023-04-21 15:40] LABS: BASOPHILS ABSOLUTE AUTO 0.02 K/uL (0.00-0.20); BASOPHILS PERCENT AUTO 0.3 % (0.0-2.0); EOSINOPHILS ABSOLUTE AUTO 0.09 K/uL (0.00-0.50); EOSINOPHILS PERCENT AUTO 1.3 % (0.0-5.0); HEMATOCRIT 40.9 % (39.0-49.0); HEMOGLOBIN 14.2 g/dL (13.1-16.8); LYMPHOCYTES ABSOLUTE AUTO 1.51 K/uL (0.50-3.50); LYMPHOCYTES PERCENT AUTO 22.5 % (10.0-50.0); MEAN CORPUSCULAR HEMOGLOBIN 30.1 pg (28.2-33.3); MEAN CORPUSCULAR HGB CONC 34.7 g/dL (31.7-36.0); MEAN CORPUSCULAR VOLUME 86.8 fL (84.0-98.0); MONOCYTES ABSOLUTE AUTO 0.74 K/uL (0.00-1.00); NEUTROPHILS ABSOLUTE AUTO 4.35 K/uL (1.40-7.00); NEUTROPHILS PERCENT AUTO 64.9 % (45.0-80.0); PLATELET COUNT,PLT 193 K/uL (150-350); RED BLOOD CELL COUNT 4.71 M/uL (4.33-5.41); RED CELL DISTRIBUTION WIDTH 12.2 % (11.2-14.1); WHITE BLOOD CELL COUNT,WBC 6.7 K/uL (4.0-10.2)
[2023-04-21 15:57] LABS: ALBUMIN 4.1 g/dL (3.4-5.0); ANION GAP 10.2 meq/L (7-15); BILIRUBIN TOTAL 0.5 mg/dL (0.2-1.0); CALCIUM 8.7 mg/dL (8.5-10.1); CARBON DIOXIDE,CO2 25.8 mmol/L (21.0-32.0); CREATININE 0.91 mg/dL (0.51-1.17); EST CRCL DRUG DOSING (CG) 81.6 mL/min; POTASSIUM,K 4.1 mmol/L (3.5-5.1); PROTEIN TOTAL,TP 7.7 g/dL (6.4-8.2)
== END 2023-04-21 17:15 | disposition home or self-care (01) ==
LOC: LL.ED 15:12
DX: M79.661 Pain in right lower leg (principal); R60.0 Localized edema; I25.10 Atherosclerotic heart disease of native coronary artery without angina pectoris; I10 Essential (primary) hypertension; I25.2 Old myocardial infarction; E78.00 Pure hypercholesterolemia, unspecified; K21.9 Gastro-esophageal reflux disease without esophagitis; E66.9 Obesity, unspecified; Z88.0 Allergy status to penicillin; Z79.899 Other long term (current) drug therapy; Z79.82 Long term (current) use of aspirin
CPT/HCPCS: 36415; 80053; 85025; 85379; 99284

== ENCOUNTER 2024-04-23 11:04 | Day surgery (SDC) | payer MEDICARE ==
[~2024-04-23 11:04] MED LIST: Midazolam 1 MG/ML 2 ML SDV ONE; Propofol 200 MG/20 ML SDV ONE
[2024-04-23] MEDS: Lactated Ringers 1,000 ML IV SCH (11:41)
[2024-04-23] MEDS ORDERED: Sodium Chloride 0.9% 10 ML Syringe FLUSH PRN (12:00)
[2024-04-23 13:40] VITALS: BP 140/71; PULSE 90
== END 2024-04-23 14:18 | disposition home or self-care (01) ==
LOC: LL.SDS 11:04
PROVIDERS: ATTEND Surgery
DX: D12.3 Benign neoplasm of transverse colon (principal); R19.4 Change in bowel habit; K64.4 Residual hemorrhoidal skin tags; K63.89 Other specified diseases of intestine; I25.10 Atherosclerotic heart disease of native coronary artery without angina pectoris; I10 Essential (primary) hypertension; G47.33 Obstructive sleep apnea (adult) (pediatric); Z79.899 Other long term (current) drug therapy; Z88.0 Allergy status to penicillin
CPT/HCPCS: 82947; J2250; J2704; J7120

== ENCOUNTER 2025-08-22 11:25 | Emergency (ER) | payer MEDICARE ==
[2025-08-22] MEDS: Take Home: predniSONE 20 MG, 4 Tab Pack PO ONE (12:37)
[2025-08-22] MEDS: Take Home: Ciprofloxacin 0.3% Ophth Soln 5 ML, 1 Bottle Pack EYEBOTH ONE (12:37)
[2025-08-22] MEDS: Take Home: Doxycycline 100 MG Cap, 4 Cap Pack PO ONE (12:37)
[2025-08-22 13:09] VITALS: BP 143/81; PULSE 58
== END 2025-08-22 12:50 | disposition home or self-care (01) ==
LOC: LL.ED 11:25
DX: H72.92 Unspecified perforation of tympanic membrane, left ear (principal); I10 Essential (primary) hypertension; E78.00 Pure hypercholesterolemia, unspecified; I25.2 Old myocardial infarction; K21.9 Gastro-esophageal reflux disease without esophagitis; E11.9 Type 2 diabetes mellitus without complications; M19.90 Unspecified osteoarthritis, unspecified site; Z90.49 Acquired absence of other specified parts of digestive tract; Z88.0 Allergy status to penicillin; Z79.82 Long term (current) use of aspirin; Z79.899 Other long term (current) drug therapy
CPT/HCPCS: 99283; A9270-GY